=== PATIENT | female | born 1970 | race Caucasian/White ===

== ENCOUNTER → 2023-09-18 | Day surgery (SDC) | payer BC ==
[~2023-09-18] MED LIST: BENZOCAINE SPRAY 1 CAN TOPICAL ONE; MIDAZOLAM 2 MG/2 ML VIAL IVP ONE; SODIUM CHLORIDE 0.9% 500 ML 500 ML IV ONE; fentaNYL (PF) 50 MCG/ML 2 ML AMP IVP ONE; fentaNYL (PF) 50 MCG/ML 2 ML AMP ONE
[2023-09-18 09:46] VITALS: RESP 16; TEMP 98.4
--- NOTE | 2023-09-18 11:12 | P.TEE ---
Date of Procedure: 09/18/23 Description of Procedure(s): Procedure performed: 1. Transesophageal Echocardiogram with color flow doppler, pulsed wave doppler and continuous wave doppler 2. Moderate conscious sedation. Sedation time 18 mins. 3. Bubble Study Indications: Systolic murmur with concerns of LVOT obstruction Consent: I have discussed the risks, benefits and alternative therapies for the above-mentioned procedure. The patient has indicated understanding and acceptance of the risks of the procedure. Signed consent was obtained and was placed in the paper chart. Procedural Steps: Timeout was performed in usual fashion. Patient's heart rate, blood pressure, oxygen saturation and ECG were monitored. Benzocaine was sprayed liberally in the back of the throat. Bite block was placed between the jaw. [1] mg of Versed and [50] mcg of Fentanyl were administered intravenously. After achieving appropriate moderate conscious sedation, KAMLA probe was advanced without difficulty and without any immediate complications to the esophagus. KAMLA study was performed with color flow doppler, pulsed wave doppler and continuous wave doppler. Agitated saline bubbles were injected to assess for any intra- atrial shunt. The probe was then removed. Patient tolerated the procedure well. Patient was transferred to the post procedure area in stable and satisfactory condition. Throughout the procedure patient's heart rate, blood pressure, oxygen saturation and ECG were monitored. Total sedation time [20] mins. Complications: none FINDINGS Left Atrium: Normal Left atrial size. No evidence of mass or thrombus seen Left Atrial Appendage: No evidence of thrombus or mass seen in ASHTYN Inter atrial septum: Intact inter-atrial septum with no evidence of atrial septal defect or patent foramen ovale. Negative bubble study Left Ventricle: Normal global LV size and systolic function Right Atrium: Normal overall RV size Right Ventricle: Normal global RV size and systolic function Aortic Valve: Structurally normal Trileaflet, no significant calcification. No significant stenosis or regurgitation on color doppler assessment. Mitral Valve: Struturally normal. Mild posterior MR due to systolic anterior motion of mitral valve. Pulmonic Valve: Not well visualized. Tricuspid Valve: Structurally normal. No significant regurgitation. Ascending aorta, Aortic root and Aortic arch: Mild intimal thickening. No evidence of large atheroma or bulky calcification Descending aorta: Mild intimal thickening. 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 Peak gradient measured at [place] roximately 10 mmHg. Valsalva could not be performed efficiently. Mild posterior MR due to systolic anterior motion of mitral valve Normal size aortic root Normal trileaflet aortic valve with no stenosis or regurgitation Findings, the patient in the family. outpatient follow-up
[2023-09-18 12:48] VITALS: BP 110/68; PULSE 62
== END ==
LOC: CATHCVL 09:07
PROVIDERS: ATTEND Student in an Organized Health Care Education/Training Program
DX: R94.39 Abnormal result of other cardiovascular function study (principal)
CPT/HCPCS: 93312; 93320; 93325; 81025; 99152; J2250; J3010